=== PATIENT | female | born 1960 | race African-American/Black ===

== ENCOUNTER 2021-11-13 16:58 | Inpatient (IN) | payer MEDICARE, MEDICAID ==
[~2021-11-13] VITALS: Ht 170.2 cm; Wt 82.7 kg
[2021-11-13] MEDS ORDERED: IOHEXOL-350 100 ML BOTTLE ONE (18:07)
[2021-11-13] MEDS ORDERED: ASPIRIN 325MG EC TABLET PO ONE (18:30)
[2021-11-13] MEDS ORDERED: CLOPIDOGREL 75MG TABLET PO ONE (18:30)
[2021-11-13] MEDS ORDERED: ATORVASTATIN CALCIUM 40MG TABLET PO ONE (18:30)
[2021-11-13 18:44] LABS: BASOPHILS % 0.6 % (0.0-2.0); EOSINOPHILS % 0.1 % (0.0-5.0); HEMATOCRIT. 36.6 % (36.0-48.0); HEMOGLOBIN. 12.3 g/dL (12.0-16.0); MEAN CORPUSCULAR HEMOGLOBIN 30.8 pg (28.0-32.0); MEAN CORPUSCULAR VOLUME 91.3 fL (81.0-99.0); MEAN PLATELET VOLUME 8.5 fl (7.4-10.4); MONOCYTES % 1.3 % (2.0-8.0); PLATELET 117 x1000/uL (130-400); RED BLOOD CELL COUNT 4.01 mill/uL (4.2-5.4); RED CELL DISTRIBUTION WIDTH 17.2 % (11.6-14.6)
[2021-11-13 18:50] LABS: CHLORIDE 94 mEq/L (98-107)
[2021-11-13 18:58] LABS: ETHANOL BLOOD < 10 mg/dL
[2021-11-13] MEDS: LORAZEPAM 0.5MG TABLET PO PRN (20:54)
[2021-11-13] MEDS: CLONIDINE 0.1MG TABLET PO PRN (20:54)
[2021-11-13] MEDS ORDERED: MAGNESIUM/ALUMINUM HYDROXIDE/SIMETHICONE 30ML UDC PO PRN (22:15)
[2021-11-13] MEDS ORDERED: IPRATROPIUM/ALBUTEROL 0.5-3(2.5)MG/3ML NEB HHN PRN (22:15)
[2021-11-13] MEDS ORDERED: ONDANSETRON HCL 4MG/2ML INJ IV PRN (22:15)
[2021-11-13] MEDS ORDERED: CLONIDINE 0.1MG TABLET PO PRN (22:15)
[2021-11-13 23:00] LABS: CLARITY URINE CLEAR (CLEAR); COLOR URINE YELLOW (YELLOW); KETONES URINE NEGATIVE (NEGATIVE); LEUKOCYTE ESTERASE URINE NEGATIVE (NEGATIVE); NITRITE URINE NEGATIVE (NEGATIVE); OCCULT BLOOD URINE NEGATIVE (NEGATIVE); PH URINE >=9.0 (4.5-8.0); PROTEIN URINE 2+ (NEGATIVE); SPECIFIC GRAVITY URINE 1.026 (1.005-1.030); UROBILINOGEN URINE 0.2 E.U./dL (0.2-1.0)
[2021-11-13 23:12] LABS: *AMPHETAMINES SCREEN URINE NEGATIVE (NEGATIVE); *BARBITURATES SCREEN URINE NEGATIVE (NEGATIVE)
[2021-11-13 23:13] LABS: *BENZODIAZEPINES SCREEN URINE NEGATIVE (NEGATIVE); *COCAINE SCREEN URINE NEGATIVE (NEGATIVE); METHADONE URINE SCREEN NEGATIVE (NEGATIVE); OPIATES URINE SCREEN NEGATIVE (NEGATIVE); PHENCYCLIDINE URINE SCREEN NEGATIVE (NEGATIVE)
[2021-11-13] MEDS: ACETAMINOPHEN 325MG TABLET PO PRN (23:13)
[2021-11-13 23:14] LABS: CANNABINOID URINE SCREEN NEGATIVE (NEGATIVE)
[2021-11-13] MEDS ORDERED: HEPARIN 25,000 UNITS PREMIX 250 ML IV SCH (23:45)
[2021-11-13] MEDS ORDERED: HEPARIN BOLUS PRN aPTT <36 IV (23:45)
[2021-11-13] MEDS ORDERED: HEPARIN 80 UNITS/KG BOLUS IV SCH (23:45)
[2021-11-13] MEDS ORDERED: HEPARIN BOLUS PRN aPTT 37-44 IV (23:45)
[2021-11-14] MEDS ORDERED: HEPARIN 80 UNITS/KG BOLUS IV SCH
[2021-11-14] MEDS ORDERED: HEPARIN BOLUS PRN aPTT <36 IV (00:03)
[2021-11-14] MEDS ORDERED: HEPARIN BOLUS PRN aPTT 37-44 IV (00:03)
[2021-11-14] MEDS: CLONIDINE 0.1MG TABLET PO PRN (01:02)
[2021-11-14] MEDS ORDERED: HEPARIN 5000 UNITS/ML VIAL SUBCUT SCH (06:00)
[2021-11-14 06:43] LABS: BASOPHILS % 0.6 % (0.0-2.0); EOSINOPHILS % 0.1 % (0.0-5.0); HEMATOCRIT. 36.6 % (36.0-48.0); LYMPHOCYTES % 15.7 % (20.0-50.0); MEAN CORPUSCULAR HEMOGLOBIN 29.6 pg (28.0-32.0); MEAN CORPUSCULAR VOLUME 90.6 fL (81.0-99.0); MEAN PLATELET VOLUME 8.4 fl (7.4-10.4); MONOCYTES % 5.3 % (2.0-8.0); NEUTROPHILS % 78.3 % (40.0-76.0); PLATELET 117 x1000/uL (130-400); RED BLOOD CELL COUNT 4.04 mill/uL (4.2-5.4)
[2021-11-14 06:45] LABS: CHLORIDE 97 mEq/L (98-107)
[2021-11-14 06:54] LABS: HDL CHOLESTEROL 94 mg/dL (40-59); LDL CHOLESTEROL 93 mg/dL (5-100)
[2021-11-14 07:11] LABS: CREATINE KINASE 55 IU/L (26-192)
[2021-11-14 07:12] LABS: CREATINE KINASE MB FRACTION 1.3 ng/mL (0.5-3.6)
[2021-11-14] MEDS: ASPIRIN 81MG EC TABLET PO SCH (09:00)
[2021-11-14] MEDS ORDERED: SODIUM POLYSTYRENE SULFONATE 15 G/60 ML BOT PO ONE (09:30)
[2021-11-14] MEDS: DEXTROSE 50% WATER 50ML SYRINGE IV NR ×2 (10:00→10:03)
[2021-11-14] MEDS ORDERED: INSULIN REGULAR (HUMULIN R) 300UNITS/3ML VIAL IV NR (10:00)
[2021-11-14] MEDS ORDERED: CALCIUM GLUCONATE 1GM PREMIX 100 ML IV NR (10:00)
[2021-11-14] MEDS ORDERED: SODIUM BICARBONATE 8.4% 1 MEQ/ML 50ML SYR IV NR (10:00)
[2021-11-14] MEDS: LORAZEPAM 0.5MG TABLET PO PRN (10:08)
[2021-11-14] MEDS ORDERED: LORAZEPAM 2MG/ML CPJ IV SCH (12:30)
[2021-11-14] MEDS ORDERED: LORAZEPAM 2MG/ML CPJ IV ONE (14:00)
[2021-11-14] MEDS ORDERED: DEXTROSE 50% WATER 50ML SYRINGE IV PRN (15:30)
[2021-11-14 16:37] LABS: CHLORIDE 97 mEq/L (98-107)
[2021-11-14 16:45] LABS: CREATINE KINASE 52 IU/L (26-192)
[2021-11-14 16:47] LABS: CREATINE KINASE MB FRACTION 1.3 ng/mL (0.5-3.6)
[2021-11-14] MEDS: INSULIN LISPRO 100 UNITS/ML SUBCUT SCH ×2 (17:20→21:00)
[2021-11-14] MEDS: BLOOD SUGAR DIAGNOSTIC STRIP TEST SCH ×2 (17:21→21:46)
[2021-11-14 18:06] VITALS: BP 139/74
[2021-11-14 18:16] VITALS: BP 139/74
[2021-11-14 20:00] VITALS: BP 107/60
[2021-11-14] MEDS ORDERED: HEPARIN 25,000 UNITS PREMIX 250 ML IV SCH (20:00)
[2021-11-14] MEDS: HEPARIN 25,000 UNITS PREMIX 250 ML IV SCH (21:08)
[2021-11-14] MEDS: ATORVASTATIN CALCIUM 40MG TABLET PO SCH (21:46)
[2021-11-14 22:00] VITALS: BP 95/55
[2021-11-14] MEDS: ACETAMINOPHEN 325MG TABLET PO PRN (22:26)
[2021-11-15] VITALS (11 sets, daily range): BP systolic 106–152; BP diastolic 49–92
[2021-11-15] MEDS: BLOOD SUGAR DIAGNOSTIC STRIP TEST SCH ×4 (06:18→20:46)
[2021-11-15 06:58] LABS: BASOPHILS % 3.4 % (0.0-2.0); EOSINOPHILS % 3.7 % (0.0-5.0); HEMOGLOBIN. 12.6 g/dL (12.0-16.0); LYMPHOCYTES % 23.9 % (20.0-50.0); MEAN CORPUSCULAR HEMOGLOBIN 29.4 pg (28.0-32.0); MEAN CORPUSCULAR VOLUME 91.2 fL (81.0-99.0); MEAN PLATELET VOLUME 8.8 fl (7.4-10.4); MONOCYTES % 8.2 % (2.0-8.0); NEUTROPHILS % 60.8 % (40.0-76.0); PLATELET 163 x1000/uL (130-400); RED BLOOD CELL COUNT 4.27 mill/uL (4.2-5.4); RED CELL DISTRIBUTION WIDTH 17.9 % (11.6-14.6)
[2021-11-15] MEDS: INSULIN LISPRO 100 UNITS/ML SUBCUT SCH ×4 (07:20→20:47)
[2021-11-15] MEDS: HEPARIN 25,000 UNITS PREMIX 250 ML IV SCH (07:49)
[2021-11-15 08:05] LABS: T4 FREE 1.11 ng/dL (0.76-1.46)
[2021-11-15] MEDS: ASPIRIN 81MG EC TABLET PO SCH (08:28)
[2021-11-15] MEDS: ACETAMINOPHEN 325MG TABLET PO PRN ×2 (09:18→15:19)
[2021-11-15 09:40] LABS: FOLIC ACID (FOLATE) SERUM >20 ng/mL ng/mL (>5.38)
[2021-11-15 09:51] LABS: VITAMIN B12 SERUM 790 pg/mL (211-911)
[2021-11-15] MEDS: ATORVASTATIN CALCIUM 40MG TABLET PO SCH (20:46)
[2021-11-16] VITALS (12 sets, daily range): BP systolic 97–148; BP diastolic 52–90
[2021-11-16] MEDS: HEPARIN 25,000 UNITS PREMIX 250 ML IV SCH (00:14)
[2021-11-16] MEDS: ACETAMINOPHEN 325MG TABLET PO PRN ×3 (02:09→18:15)
[2021-11-16] MEDS: BLOOD SUGAR DIAGNOSTIC STRIP TEST SCH ×4 (06:56→20:47)
[2021-11-16 07:15] LABS: BASOPHILS % 1.4 % (0.0-2.0); EOSINOPHILS % 2.6 % (0.0-5.0); HEMATOCRIT. 36.9 % (36.0-48.0); HEMOGLOBIN. 11.9 g/dL (12.0-16.0); LYMPHOCYTES % 18.6 % (20.0-50.0); MEAN CORPUSCULAR HEMOGLOBIN 29.5 pg (28.0-32.0); MEAN CORPUSCULAR VOLUME 91.9 fL (81.0-99.0); MEAN PLATELET VOLUME 9.4 fl (7.4-10.4); MONOCYTES % 11.7 % (2.0-8.0); NEUTROPHILS % 65.7 % (40.0-76.0); PLATELET 176 x1000/uL (130-400); RED BLOOD CELL COUNT 4.02 mill/uL (4.2-5.4); RED CELL DISTRIBUTION WIDTH 17.9 % (11.6-14.6)
[2021-11-16] MEDS: INSULIN LISPRO 100 UNITS/ML SUBCUT SCH ×4 (07:20→20:47)
[2021-11-16] MEDS: ASPIRIN 81MG EC TABLET PO SCH (08:53)
[2021-11-16] MEDS ORDERED: THROAT LOZENGES-BENZOCAINE/MENTH/CETYLPYRD CL LOZENGES MM PRN (12:00)
[2021-11-16] MEDS ORDERED: ZOLPIDEM TARTRATE 5MG TABLET PO NR (20:45)
[2021-11-16] MEDS: ATORVASTATIN CALCIUM 40MG TABLET PO SCH (20:47)
[2021-11-17] VITALS (24 sets, daily range): BP systolic 95–157; BP diastolic 54–101
[2021-11-17] MEDS: HEPARIN 25,000 UNITS PREMIX 250 ML IV SCH (01:13)
[2021-11-17] MEDS: BLOOD SUGAR DIAGNOSTIC STRIP TEST SCH ×4 (06:31→21:23)
[2021-11-17 06:41] LABS: HEMATOCRIT. 38.1 % (36.0-48.0); HEMOGLOBIN. 12.3 g/dL (12.0-16.0); MEAN CORPUSCULAR HEMOGLOBIN 29.5 pg (28.0-32.0); MEAN CORPUSCULAR VOLUME 91.3 fL (81.0-99.0); MEAN PLATELET VOLUME 9.3 fl (7.4-10.4); PLATELET 198 x1000/uL (130-400); RED BLOOD CELL COUNT 4.18 mill/uL (4.2-5.4); RED CELL DISTRIBUTION WIDTH 17.9 % (11.6-14.6)
[2021-11-17] MEDS: INSULIN LISPRO 100 UNITS/ML SUBCUT SCH ×4 (07:20→21:00)
[2021-11-17] MEDS: DOCUSATE SODIUM 100MG CAPSULE PO PRN ×2 (08:04→17:19)
[2021-11-17] MEDS: ASPIRIN 81MG EC TABLET PO SCH (08:04)
[2021-11-17] MEDS ORDERED: ACYC200C31 PO (08:08)
[2021-11-17] MEDS ORDERED: DEXA4TAB PO (08:08)
[2021-11-17] MEDS ORDERED: PREG75CA PO (08:08)
[2021-11-17] MEDS ORDERED: PRED5TAB48 PO (08:08)
[2021-11-17] MEDS ORDERED: TOPUD PO (08:08)
[2021-11-17] MEDS ORDERED: TAP5 PO (08:08)
[2021-11-17] MEDS ORDERED: CYCL10TA7 PO (08:08)
[2021-11-17] MEDS ORDERED: ATEN-42 PO (09:04)
[2021-11-17] MEDS ORDERED: D-ME1TAB32 PO (09:04)
[2021-11-17] MEDS ORDERED: DOCU100T PO (09:04)
[2021-11-17] MEDS ORDERED: CBD TP (09:04)
[2021-11-17] MEDS ORDERED: ONDA4TAB11 PO (09:04)
[2021-11-17] MEDS ORDERED: FOLI0.8T42 PO (09:04)
[2021-11-17] MEDS ORDERED: POMA3CAP PO (09:04)
[2021-11-17] MEDS ORDERED: APIX2.5T PO (09:04)
[2021-11-17] MEDS ORDERED: HYDR-3992 PO (09:04)
[2021-11-17] MEDS ORDERED: HYDR-4233 TP (09:04)
[2021-11-17] MEDS ORDERED: FLUT16SP15 BOTHNSTRLS (09:14)
[2021-11-17] MEDS ORDERED: ASPI-1497 PO (09:14)
[2021-11-17] MEDS ORDERED: FOLI0.8T27 PO (09:14)
[2021-11-17] MEDS ORDERED: SODI10PO PO (09:15)
[2021-11-17] MEDS ORDERED: LOPE2CAP PO (09:15)
[2021-11-17] MEDS ORDERED: AMOX-494 PO (09:15)
[2021-11-17] MEDS ORDERED: SEVE0.8P PO (09:15)
[2021-11-17] MEDS ORDERED: BENZ1LOZ MM (09:15)
[2021-11-17] MEDS ORDERED: OMEP20CA14 PO (09:15)
[2021-11-17] MEDS ORDERED: ALBU6.7H15 INH (09:15)
[2021-11-17] MEDS ORDERED: [UNRECOGNIZED DRUG - CODE] PO (09:15)
[2021-11-17] MEDS ORDERED: TOBR5DRO47 (09:23)
[2021-11-17] MEDS ORDERED: MOXI3DRO12 (09:23)
[2021-11-17] MEDS ORDERED: ZOLP5TAB8 PO (09:23)
[2021-11-17] MEDS ORDERED: GUAI600T26 PO (09:23)
[2021-11-17] MEDS ORDERED: CARV12.545 PO (09:23)
[2021-11-17] MEDS ORDERED: LORA10TA7 PO (09:23)
[2021-11-17] MEDS ORDERED: FAMO-135 PO (09:23)
[2021-11-17] MEDS ORDERED: NON FORMULARY PATIENT HOME MED XX SCH (11:45)
[2021-11-17] MEDS ORDERED: FAMOTIDINE 20MG TABLET PO SCH (12:00)
[2021-11-17] MEDS ORDERED: FOLIC ACID/VITAMIN B COMP W-C TABLET PO SCH (12:00)
[2021-11-17] MEDS ORDERED: METHIMAZOLE 5MG TABLET PO SCH (12:00)
[2021-11-17 12:08] LABS: PLATELET ESTIMATE NORMAL
[2021-11-17] MEDS: CYCLOBENZAPRINE 10MG TABLET PO SCH ×2 (13:00→17:20)
[2021-11-17] MEDS: PREGABALIN 75MG CAPSULE PO SCH ×2 (13:00→17:20)
[2021-11-17] MEDS: LORAZEPAM 0.5MG TABLET PO PRN (13:37)
[2021-11-17] MEDS ORDERED: *PATIENT'S OWN MEDICATION STORAGE XX SCH (14:15)
[2021-11-17] MEDS ORDERED: POMALYST 3 MG PO SCH (15:00)
[2021-11-17] MEDS ORDERED: CARVEDILOL 12.5MG TABLET PO SCH (17:00)
[2021-11-17 17:06] LABS: ANTI-CARDIOLIPIN AB IGA < 9 APL U/mL (0-11); ANTI-CARDIOLIPIN AB IGG < 9 GPL U/mL (0-14); ANTI-CARDIOLIPIN AB IGM 10 MPL U/mL (0-12)
[2021-11-17] MEDS ORDERED: APIXABAN 5 MG TABLET PO SCH (17:20)
[2021-11-17] MEDS: ACETAMINOPHEN 325MG TABLET PO PRN (19:58)
[2021-11-17] MEDS ORDERED: ZOLPIDEM TARTRATE 5MG TABLET PO SCH (21:00)
[2021-11-17] MEDS: ATORVASTATIN CALCIUM 40MG TABLET PO SCH (21:24)
[2021-11-18 04:07] LABS: ANTI-THROMBIN ACTIVITY 114 % (75-135); PROTEIN C FUNCTIONAL 172 % (73-180)
[2021-11-18] MEDS ORDERED: LORATADINE 10MG TABLET PO SCH (09:00)
[2021-11-18] MEDS ORDERED: ACYCLOVIR 400 MG TABLET PO SCH (09:00)
[2021-11-19 21:45] LABS: HEPATITIS B SURFACE ANTIGEN NEGATIVE
== END 2021-11-17 23:00 | DRG 64 ==
LOC: ER 16:58 → MICUSO 19:15 → EDBEDREQ 19:53 → EDBEDREQTM 19:53 → 3WST 11-14 15:44
PROVIDERS: ADMIT Internal Medicine; ATTEND Internal Medicine
PROC: 5A1D70Z Performance of Urinary Filtration, Intermittent, Less than 6 Hours Per Day (ICD-10-PCS; principal; 2021-11-14)
PROC: 5A1D70Z Performance of Urinary Filtration, Intermittent, Less than 6 Hours Per Day (ICD-10-PCS; 2021-11-16)
PROC: 5A1D70Z Performance of Urinary Filtration, Intermittent, Less than 6 Hours Per Day (ICD-10-PCS; 2021-11-17)
DX: I63.9 Cerebral infarction, unspecified (principal); N18.6 End stage renal disease; C90.00 Multiple myeloma not having achieved remission; I12.0 Hypertensive chronic kidney disease with stage 5 chronic kidney disease or end stage renal disease; G81.91 Hemiplegia, unspecified affecting right dominant side; I82.411 Acute embolism and thrombosis of right femoral vein; R47.01 Aphasia; D64.9 Anemia, unspecified; E87.5 Hyperkalemia; E04.2 Nontoxic multinodular goiter; Z20.822 Contact with and (suspected) exposure to COVID-19; E78.5 Hyperlipidemia, unspecified; I16.0 Hypertensive urgency; I25.10 Atherosclerotic heart disease of native coronary artery without angina pectoris; Z99.2 Dependence on renal dialysis; Z82.49 Family history of ischemic heart disease and other diseases of the circulatory system; Z86.73 Personal history of transient ischemic attack (TIA), and cerebral infarction without residual deficits; Z79.82 Long term (current) use of aspirin
CPT/HCPCS: 36415; 70496; 70498; 70551; 71045; 80048; 80053; 80061; 80305; 80320; 81003; 81400; 81403; 81407; 81479; 82550; 82553; 82607; 82746; 82962; 83036; 83735; 84439; 84443; 84481; 84484; 85025; 85300; 85303; 85306; 86147; 86705; 86709; 86803; 87340; 87426; 92610; 93005; 93306; 93970; 97162; 97166; 97530; 99291; J0610; J1644; J1815; J2060; J3490; Q9967; G0480

== ENCOUNTER 2021-12-13 12:49 | Emergency (ER) | payer MEDICARE, OTHER ==
[~2021-12-13] VITALS: Ht 177.8 cm; Wt 90.0 kg
[~2021-12-13 12:49] MED LIST: ACYC200C31 PO; ALBU6.7H15 INH; APIX2.5T PO; ASPI-1497 PO; CARV12.545 PO; DOCU-150 PO; FAMO-135 PO; FLUT16SP15 BOTHNSTRLS; FOLI0.8T42 PO; PREG75CA PO; SEVE0.8P PO; TAMS-11 PO
[2021-12-13 16:45] VITALS: BP 156/91
== END 2021-12-13 16:45 | disposition home or self-care (01) ==
LOC: ER 12:51
DX: R53.1 Weakness (principal); R45.1 Restlessness and agitation; Z85.6 Personal history of leukemia; Z86.73 Personal history of transient ischemic attack (TIA), and cerebral infarction without residual deficits; Z99.2 Dependence on renal dialysis; Z79.899 Other long term (current) drug therapy
CPT/HCPCS: 99283

== ENCOUNTER 2021-12-16 18:16 | Inpatient (IN) | payer MEDICARE, OTHER ==
[~2021-12-16] VITALS: Ht 170.2 cm; Wt 81.7 kg
[2021-12-16] MEDS ORDERED: PIPERACILLIN/TAZ 3.375G PREMIX 50 ML IV ONE ×2 (19:30)
[2021-12-16] MEDS ORDERED: VANCOMYCIN 1G PREMIX 200 ML IV ONE ×2 (19:30)
[2021-12-16 19:53] LABS: HEMATOCRIT. 23.1 % (36.0-48.0); HEMOGLOBIN. 7.8 g/dL (12.0-16.0); MEAN CORPUSCULAR HEMOGLOBIN 29.9 pg (28.0-32.0); MEAN CORPUSCULAR VOLUME 88.1 fL (81.0-99.0); MEAN PLATELET VOLUME 8.7 fl (7.4-10.4); PLATELET 279 x1000/uL (130-400); RED BLOOD CELL COUNT 2.62 mill/uL (4.2-5.4); RED CELL DISTRIBUTION WIDTH 16.6 % (11.6-14.6)
[2021-12-16 20:00] LABS: CHLORIDE 100 mEq/L (98-107)
[2021-12-16 20:26] LABS: PLATELET ESTIMATE NORMAL
[2021-12-16] MEDS ORDERED: ONDANSETRON HCL 4MG/2ML INJ IV PRN (22:30)
[2021-12-16] MEDS ORDERED: HYDROCODONE/ACETAMINOPHEN 5/325MG TABLET PO PRN (22:30)
[2021-12-16] MEDS ORDERED: ACETAMINOPHEN 325MG TABLET PO PRN ×2 (22:30)
[2021-12-16] MEDS ORDERED: MAGNESIUM/ALUMINUM HYDROXIDE/SIMETHICONE 30ML UDC PO PRN (22:30)
[2021-12-16] MEDS ORDERED: CLONIDINE 0.1MG TABLET PO PRN (22:30)
[2021-12-17] VITALS (7 sets, daily range): BP systolic 103–121; BP diastolic 44–74
[2021-12-17 07:33] LABS: HEMATOCRIT. 23.3 % (36.0-48.0); HEMOGLOBIN. 7.8 g/dL (12.0-16.0); MEAN CORPUSCULAR HEMOGLOBIN 29.8 pg (28.0-32.0); MEAN CORPUSCULAR VOLUME 88.8 fL (81.0-99.0); MEAN PLATELET VOLUME 8.8 fl (7.4-10.4); PLATELET 267 x1000/uL (130-400); RED BLOOD CELL COUNT 2.62 mill/uL (4.2-5.4); RED CELL DISTRIBUTION WIDTH 16.4 % (11.6-14.6)
[2021-12-17 08:04] LABS: PHOSPHORUS 6.2 mg/dL (2.5-4.9)
[2021-12-17] MEDS ORDERED: LIDOCAINE HCL 1% 20ML VIAL (Pyxis) INJ ONE (08:14)
[2021-12-17] MEDS: ENOXAPARIN 30MG/0.3ML SYR SUBCUT SCH (10:04)
[2021-12-17] MEDS ORDERED: IOHEXOL-350 100 ML BOTTLE ONE (11:14)
[2021-12-17 11:52] LABS: HEPATITIS B SURFACE ANTIGEN NEGATIVE
[2021-12-17 12:55] LABS: PLATELET ESTIMATE NORMAL
[2021-12-17] MEDS ORDERED: NALOXONE HCL 0.4MG/ML VIAL IV PRN (19:15)
[2021-12-18] VITALS: BP 100/56
[2021-12-18 04:00] VITALS: BP 94/50
[2021-12-18 07:59] VITALS: BP 95/53
[2021-12-18] MEDS: ENOXAPARIN 30MG/0.3ML SYR SUBCUT SCH (08:28)
[2021-12-18 11:46] VITALS: BP 119/67
[2021-12-18] MEDS: FLUOXETINE HCL 10 MG CAPSULE PO SCH (14:46)
[2021-12-18] MEDS: METOPROLOL TARTRATE 25MG TABLET PO SCH ×2 (14:46→21:26)
[2021-12-18 16:18] VITALS: BP 145/80
[2021-12-18] MEDS: ASPIRIN 81MG EC TABLET PO SCH (17:15)
[2021-12-18] MEDS: PREGABALIN 75MG CAPSULE PO SCH (17:15)
[2021-12-18] MEDS: TAMSULOSIN HCL 0.4MG SR CAPSULE PO SCH (17:15)
[2021-12-18] MEDS: ACYCLOVIR 400 MG TABLET PO SCH (18:00)
[2021-12-18 20:00] VITALS: BP 128/57
[2021-12-18] MEDS: APIXABAN 5 MG TABLET PO SCH (21:27)
[2021-12-19] VITALS: BP 106/48
[2021-12-19 04:00] VITALS: BP 151/65
[2021-12-19 08:03] VITALS: BP 134/100
[2021-12-19] MEDS: FLUOXETINE HCL 10 MG CAPSULE PO SCH (08:35)
[2021-12-19] MEDS: APIXABAN 5 MG TABLET PO SCH ×2 (08:35→22:34)
[2021-12-19] MEDS: PREGABALIN 75MG CAPSULE PO SCH ×3 (08:35→17:44)
[2021-12-19] MEDS: METOPROLOL TARTRATE 25MG TABLET PO SCH ×2 (08:35→22:34)
[2021-12-19] MEDS: ASPIRIN 81MG EC TABLET PO SCH (08:35)
[2021-12-19] MEDS: TAMSULOSIN HCL 0.4MG SR CAPSULE PO SCH (08:36)
[2021-12-19] MEDS: ACYCLOVIR 400 MG TABLET PO SCH (08:36)
[2021-12-19 11:49] VITALS: BP 109/69
[2021-12-19] MEDS ORDERED: LORAZEPAM 0.5MG TABLET PO NR (14:45)
[2021-12-19 16:00] VITALS: BP 156/76
[2021-12-19 16:09] LABS: BASOPHILS % 3.3 % (0.0-2.0); EOSINOPHILS % 1.8 % (0.0-5.0); LYMPHOCYTES % 34.1 % (20.0-50.0); MONOCYTES % 8.7 % (2.0-8.0); NEUTROPHILS % 52.1 % (40.0-76.0); PLATELET 299 x1000/uL (130-400); RED BLOOD CELL COUNT 2.66 mill/uL (4.2-5.4)
[2021-12-20] VITALS: BP 127/73
[2021-12-20 04:00] VITALS: BP 119/59
[2021-12-20 06:56] LABS: BASOPHILS % 3.7 % (0.0-2.0); EOSINOPHILS % 4.3 % (0.0-5.0); HEMATOCRIT. 22.7 % (36.0-48.0); HEMOGLOBIN. 7.6 g/dL (12.0-16.0); LYMPHOCYTES % 34.7 % (20.0-50.0); MEAN CORPUSCULAR HEMOGLOBIN 29.9 pg (28.0-32.0); MEAN CORPUSCULAR VOLUME 90.1 fL (81.0-99.0); MEAN PLATELET VOLUME 8.4 fl (7.4-10.4); MONOCYTES % 10.3 % (2.0-8.0); PLATELET 283 x1000/uL (130-400); RED BLOOD CELL COUNT 2.52 mill/uL (4.2-5.4); RED CELL DISTRIBUTION WIDTH 16.9 % (11.6-14.6)
[2021-12-20 07:56] VITALS: BP 137/70
[2021-12-20] MEDS: TAMSULOSIN HCL 0.4MG SR CAPSULE PO SCH (08:31)
[2021-12-20] MEDS: APIXABAN 5 MG TABLET PO SCH ×2 (08:31→21:42)
[2021-12-20] MEDS: METOPROLOL TARTRATE 25MG TABLET PO SCH ×2 (08:31→21:00)
[2021-12-20] MEDS: PREGABALIN 75MG CAPSULE PO SCH ×3 (08:31→17:00)
[2021-12-20] MEDS: ASPIRIN 81MG EC TABLET PO SCH (08:32)
[2021-12-20] MEDS: ACYCLOVIR 400 MG TABLET PO SCH (08:32)
[2021-12-20] MEDS: FLUOXETINE HCL 10 MG CAPSULE PO SCH (08:32)
[2021-12-20 12:04] VITALS: BP 120/63
[2021-12-20 15:36] VITALS: BP 114/69
[2021-12-20 20:00] VITALS: BP 119/65
[2021-12-21] VITALS: BP 100/68
[2021-12-21 04:00] VITALS: BP 101/56
[2021-12-21 07:53] VITALS: BP 136/62
[2021-12-21] MEDS: APIXABAN 5 MG TABLET PO SCH ×2 (08:35→20:43)
[2021-12-21] MEDS: METOPROLOL TARTRATE 25MG TABLET PO SCH ×3 (08:35→20:43)
[2021-12-21] MEDS: TAMSULOSIN HCL 0.4MG SR CAPSULE PO SCH ×2 (08:35→08:48)
[2021-12-21] MEDS: ASPIRIN 81MG EC TABLET PO SCH (08:35)
[2021-12-21] MEDS: FLUOXETINE HCL 10 MG CAPSULE PO SCH ×2 (08:35→08:48)
[2021-12-21] MEDS: ACYCLOVIR 400 MG TABLET PO SCH ×2 (08:35→08:48)
[2021-12-21] MEDS: PREGABALIN 75MG CAPSULE PO SCH ×4 (08:35→16:00)
[2021-12-21 11:45] VITALS: BP 142/85
[2021-12-21 15:37] VITALS: BP 117/77
[2021-12-21 20:00] VITALS: BP 105/74
[2021-12-22] VITALS: BP 119/83
[2021-12-22 04:00] VITALS: BP 98/68
[2021-12-22 08:00] VITALS: BP 105/59
[2021-12-22] MEDS: METOPROLOL TARTRATE 25MG TABLET PO SCH ×2 (09:00→21:00)
[2021-12-22] MEDS: ACYCLOVIR 400 MG TABLET PO SCH (09:00)
[2021-12-22] MEDS: TAMSULOSIN HCL 0.4MG SR CAPSULE PO SCH (09:00)
[2021-12-22] MEDS ORDERED: METO25TA6 PO (09:47)
[2021-12-22] MEDS ORDERED: MOM PO (09:47)
[2021-12-22] MEDS ORDERED: FLUO10CA28 PO (09:47)
[2021-12-22] MEDS ORDERED: POLY119P2 PO (09:47)
[2021-12-22] MEDS ORDERED: TOPUD PO (09:47)
[2021-12-22 10:46] LABS: BASOPHILS % 2.4 % (0.0-2.0); EOSINOPHILS % 2.7 % (0.0-5.0); HEMATOCRIT. 22.2 % (36.0-48.0); HEMOGLOBIN. 7.4 g/dL (12.0-16.0); LYMPHOCYTES % 27.3 % (20.0-50.0); MEAN CORPUSCULAR HEMOGLOBIN 29.7 pg (28.0-32.0); MEAN CORPUSCULAR VOLUME 89.8 fL (81.0-99.0); MEAN PLATELET VOLUME 8.4 fl (7.4-10.4); MONOCYTES % 7.7 % (2.0-8.0); NEUTROPHILS % 59.9 % (40.0-76.0); PLATELET 274 x1000/uL (130-400); RED BLOOD CELL COUNT 2.47 mill/uL (4.2-5.4)
[2021-12-22] MEDS: FLUOXETINE HCL 10 MG CAPSULE PO SCH (10:59)
[2021-12-22] MEDS: APIXABAN 5 MG TABLET PO SCH ×2 (10:59→21:32)
[2021-12-22] MEDS: ASPIRIN 81MG EC TABLET PO SCH (11:00)
[2021-12-22] MEDS: PREGABALIN 75MG CAPSULE PO SCH ×3 (11:00→16:44)
[2021-12-22 12:00] VITALS: BP 102/63
[2021-12-22 16:00] VITALS: BP 108/58
[2021-12-22 20:00] VITALS: BP 98/58
[2021-12-23] VITALS (24 sets, daily range): BP systolic 100–150; BP diastolic 52–96
[2021-12-23] MEDS ORDERED: ALTEPLASE 2MG/VIAL ITC SCH (07:45)
[2021-12-23] MEDS: ASPIRIN 81MG EC TABLET PO SCH (09:00)
[2021-12-23] MEDS: FLUOXETINE HCL 10 MG CAPSULE PO SCH (09:00)
[2021-12-23] MEDS: APIXABAN 5 MG TABLET PO SCH ×3 (09:00→22:12)
[2021-12-23] MEDS: TAMSULOSIN HCL 0.4MG SR CAPSULE PO SCH (09:00)
[2021-12-23] MEDS: PREGABALIN 75MG CAPSULE PO SCH ×3 (09:00→17:42)
[2021-12-23] MEDS: ACYCLOVIR 400 MG TABLET PO SCH (09:00)
[2021-12-23] MEDS: METOPROLOL TARTRATE 25MG TABLET PO SCH ×3 (09:00→22:13)
[2021-12-23 09:07] LABS: ALBUMIN 2.9 g/dL (2.9-4.4); ALPHA-1-GLOBULIN 0.2 g/dL (0.0-0.4); ALPHA-2-GLOBULIN 0.9 g/dL (0.4-1.0); BETA GLOBULIN 0.9 g/dL (0.7-1.3); GAMMA GLOBULINS 0.8 g/dL (0.4-1.8); GLOBULIN TOTAL 2.8 g/dL (2.2-3.9); KAPPA/LAMBDA RATIO 112.52 (0.26-1.65); LAMBDA LT CHAINS FREE SERUM 49.4 mg/L (5.7-26.3); M-SPIKE Not Observed g/dL (Not Observed); TOTAL PROTEIN SERUM 5.7 g/dL (6.0-8.5)
[2021-12-23] MEDS ORDERED: HEPARIN 1000 UNITS/ML 10ML ONE (09:45)
[2021-12-23] MEDS ORDERED: IOHEXOL-300 100 ML BOTTLE ONE (09:45)
[2021-12-23] MEDS ORDERED: LIDOCAINE HCL 1% 10 MG/ML 10ML VIAL ONE (09:46)
[2021-12-23] MEDS ORDERED: CEFAZOLIN 1000MG PREMIX 50 ML IV ONE (09:49)
[2021-12-23] MEDS ORDERED: FENTANYL CITRATE/PF 50MCG/ML 2ML VIAL ONE (09:49)
[2021-12-23] MEDS ORDERED: CEFAZOLIN 1000MG PREMIX 50 ML IV SCH (10:00)
[2021-12-23 10:28] LABS: BASOPHILS % 2.3 % (0.0-2.0); EOSINOPHILS % 3.7 % (0.0-5.0); HEMATOCRIT. 23.4 % (36.0-48.0); HEMOGLOBIN. 7.6 g/dL (12.0-16.0); LYMPHOCYTES % 29.3 % (20.0-50.0); MEAN CORPUSCULAR HEMOGLOBIN 29.3 pg (28.0-32.0); MEAN CORPUSCULAR VOLUME 90.8 fL (81.0-99.0); MONOCYTES % 6.7 % (2.0-8.0); PLATELET 297 x1000/uL (130-400); RED BLOOD CELL COUNT 2.58 mill/uL (4.2-5.4); RED CELL DISTRIBUTION WIDTH 17.3 % (11.6-14.6)
[2021-12-23] MEDS ORDERED: FENTANYL CITRATE/PF 50MCG/ML 2ML VIAL IV SCH (11:15)
[2021-12-23] MEDS ORDERED: SODIUM POLYSTYRENE SULFONATE 15 G/60 ML BOT PO NR (14:15)
[2021-12-24] VITALS (24 sets, daily range): BP systolic 103–126; BP diastolic 60–76
[2021-12-24] MEDS ORDERED: CEFAZOLIN 1000MG PREMIX 50 ML IV NR (07:30)
[2021-12-24] MEDS ORDERED: HEPARIN 1000 UNITS/ML 10ML ONE (07:40)
[2021-12-24] MEDS ORDERED: LIDOCAINE HCL 1% 10 MG/ML 10ML VIAL ONE ×2 (07:40→14:05)
[2021-12-24] MEDS ORDERED: FENTANYL CITRATE/PF 50MCG/ML 2ML VIAL ONE ×2 (07:40→12:50)
[2021-12-24] MEDS ORDERED: CEFAZOLIN 1000MG PREMIX 50 ML IV ONE ×2 (07:40→12:50)
[2021-12-24 07:41] LABS: BASOPHILS % 2.1 % (0.0-2.0); EOSINOPHILS % 3.7 % (0.0-5.0); HEMATOCRIT. 21.7 % (36.0-48.0); HEMOGLOBIN. 7.2 g/dL (12.0-16.0); LYMPHOCYTES % 24.2 % (20.0-50.0); MEAN CORPUSCULAR VOLUME 91.1 fL (81.0-99.0); MEAN PLATELET VOLUME 9.2 fl (7.4-10.4); MONOCYTES % 7.1 % (2.0-8.0); NEUTROPHILS % 62.9 % (40.0-76.0); PLATELET 253 x1000/uL (130-400); RED BLOOD CELL COUNT 2.39 mill/uL (4.2-5.4); RED CELL DISTRIBUTION WIDTH 16.8 % (11.6-14.6)
[2021-12-24] MEDS: ASPIRIN 81MG EC TABLET PO SCH (08:10)
[2021-12-24] MEDS: APIXABAN 5 MG TABLET PO SCH (08:11)
[2021-12-24] MEDS: METOPROLOL TARTRATE 25MG TABLET PO SCH ×2 (08:20→20:42)
[2021-12-24] MEDS: TAMSULOSIN HCL 0.4MG SR CAPSULE PO SCH (08:55)
[2021-12-24] MEDS: ACYCLOVIR 400 MG TABLET PO SCH (08:56)
[2021-12-24] MEDS: FLUOXETINE HCL 10 MG CAPSULE PO SCH (08:56)
[2021-12-24] MEDS: PREGABALIN 75MG CAPSULE PO SCH ×4 (08:56→17:00)
[2021-12-24] MEDS ORDERED: IOHEXOL-300 50 ML BOTTLE IV ONE (13:45)
[2021-12-24] MEDS ORDERED: FENTANYL CITRATE/PF 50MCG/ML 2ML VIAL IV ONE (14:00)
== END 2021-12-24 22:20 | DRG 252 ==
LOC: ER 18:16 → 8WST 22:14 → SUPCPDRO 22:22 → ENRESERV 23:47
PROVIDERS: ADMIT Internal Medicine; ATTEND Internal Medicine
PROC: 02HV33Z Insertion of Infusion Device into Superior Vena Cava, Percutaneous Approach (ICD-10-PCS; principal; 2021-12-17)
PROC: B518ZZA Fluoroscopy of Superior Vena Cava, Guidance (ICD-10-PCS; 2021-12-17)
PROC: B548ZZA Ultrasonography of Superior Vena Cava, Guidance (ICD-10-PCS; 2021-12-17)
PROC: 5A1D70Z Performance of Urinary Filtration, Intermittent, Less than 6 Hours Per Day (ICD-10-PCS; 2021-12-17)
PROC: 5A1D70Z Performance of Urinary Filtration, Intermittent, Less than 6 Hours Per Day (ICD-10-PCS; 2021-12-19)
PROC: 5A1D70Z Performance of Urinary Filtration, Intermittent, Less than 6 Hours Per Day (ICD-10-PCS; 2021-12-21)
PROC: 03WY3JZ Revision of Synthetic Substitute in Upper Artery, Percutaneous Approach (ICD-10-PCS; 2021-12-23)
PROC: 05WY3JZ Revision of Synthetic Substitute in Upper Vein, Percutaneous Approach (ICD-10-PCS; 2021-12-23)
PROC: 3E03317 Introduction of Other Thrombolytic into Peripheral Vein, Percutaneous Approach (ICD-10-PCS; 2021-12-23)
PROC: B34JZZZ Ultrasonography of Left Upper Extremity Arteries (ICD-10-PCS; 2021-12-23)
PROC: B312ZZZ Fluoroscopy of Left Subclavian Artery (ICD-10-PCS; 2021-12-23)
PROC: B31JZZZ Fluoroscopy of Left Upper Extremity Arteries (ICD-10-PCS; 2021-12-23)
PROC: 5A1D80Z Performance of Urinary Filtration, Prolonged Intermittent, 6-18 hours Per Day (ICD-10-PCS; 2021-12-23)
PROC: 3E05317 Introduction of Other Thrombolytic into Peripheral Artery, Percutaneous Approach (ICD-10-PCS; 2021-12-23)
PROC: 0JH63XZ Insertion of Tunneled Vascular Access Device into Chest Subcutaneous Tissue and Fascia, Percutaneous Approach (ICD-10-PCS; 2021-12-24)
PROC: 02HV33Z Insertion of Infusion Device into Superior Vena Cava, Percutaneous Approach (ICD-10-PCS; 2021-12-24)
PROC: B518ZZA Fluoroscopy of Superior Vena Cava, Guidance (ICD-10-PCS; 2021-12-24)
PROC: B548ZZA Ultrasonography of Superior Vena Cava, Guidance (ICD-10-PCS; 2021-12-24)
DX: T82.868A Thrombosis due to vascular prosthetic devices, implants and grafts, initial encounter (principal); N18.6 End stage renal disease; I13.2 Hypertensive heart and chronic kidney disease with heart failure and with stage 5 chronic kidney disease, or end stage renal disease; I69.351 Hemiplegia and hemiparesis following cerebral infarction affecting right dominant side; C90.00 Multiple myeloma not having achieved remission; E87.5 Hyperkalemia; F32.9 Major depressive disorder, single episode, unspecified; I50.9 Heart failure, unspecified; Z20.822 Contact with and (suspected) exposure to COVID-19; D63.1 Anemia in chronic kidney disease; I69.320 Aphasia following cerebral infarction; Z99.2 Dependence on renal dialysis; Z87.891 Personal history of nicotine dependence; Z79.01 Long term (current) use of anticoagulants; Z79.82 Long term (current) use of aspirin; Z79.899 Other long term (current) drug therapy; R00.0 Tachycardia, unspecified; R79.89 Other specified abnormal findings of blood chemistry; Z87.828 Personal history of other (healed) physical injury and trauma
CPT/HCPCS: 36415; 36558; 36573; 36905; 71045; 71275; 76937; 77001; 80048; 80053; 83605; 83735; 83880; 83883; 84100; 84145; 84155; 84165; 84484; 85025; 85379; 86705; 86709; 86803; 87340; 87426; 93005; 93306; 93970; 97110; 97162; 97166; 99152; 99153; 99285; C1725; C1750; C1766; C1769; J0690; J1644; J1650; J2543; J2997; J3010; J3370; J3490; L8514; Q9967; G0500